=== PATIENT | female | born 1980 | race African-American/Black ===

== ENCOUNTER 2017-07-18 15:50 | Emergency (ER) | payer SELFPAY ==
[2017-07-18] MEDS: IV NORMAL SALINE 1000ML BAG 1,000 ML IV (16:33)
[2017-07-18] MEDS ORDERED: 0.9 % SODIUM CHLORIDE 10 ML DISP.SYRIN. IV (16:45)
[2017-07-18] MEDS: ASPIRIN 325 MG TABLET PO (17:34)
[2017-07-18 17:44] LABS: ADD MAN DIFF? NO
[2017-07-18 17:47] LABS: BASO % 1 % (0-3); EOS % 1 % (0-3); HEMATOCRIT 43.1 % (36.0-47.0); HEMOGLOBIN 14.3 g/dL (12.0-15.5); LYMPH # 1.4 x10^3/uL (1.0-4.8); LYMPH % 23 % (24-48); MEAN CORPUSCULAR HEMOGLOBIN 30 pg (25-35); MEAN CORPUSCULAR HGB CONC 33 g/dL (31-37); MEAN CORPUSCULAR VOLUME 90 fL (79-100); MONO # 0.6 x10^3/uL (0.0-1.1); MONO % 10 % (0-9); NEUT % 65 % (31-73); PLATELET COUNT 255 x10^3/uL (140-400); RED CELL DISTRIBUTION WIDTH 14.4 % (11.5-14.5); WHITE BLOOD COUNT 6.2 x10^3/uL (4.0-11.0)
[2017-07-18 17:56] LABS: BILIRUBIN,URINE NEGATIVE (NEG); CLARITY,URINE CLOUDY; COLOR,URINE YELLOW; GLUCOSE,URINE NEGATIVE (NEG); NITRITE,URINE NEGATIVE (NEG); PROTEIN,URINE NEGATIVE (NEG-TRACE)
[2017-07-18 17:57] LABS: URINE HCG POC HCG NEGATIVE (Negative)
[2017-07-18 17:58] LABS: ANION GAP 10 (6-14); BLOOD UREA NITROGEN 8 mg/dL (7-20); CALCIUM 8.8 mg/dL (8.5-10.1); CARBON DIOXIDE 27 mmol/L (21-32); CHLORIDE 105 mmol/L (98-107); CREATININE 0.9 mg/dL (0.6-1.0); GFR 85.2; GLUCOSE 92 mg/dL (70-99); POTASSIUM 3.5 mmol/L (3.5-5.1); SODIUM 142 mmol/L (136-145)
[2017-07-18 18:04] LABS: ALK PHOS 78 U/L (46-116); ALT (SGPT) 6 U/L (14-59); AST (SGOT) 17 U/L (15-37); DIRECT BILIRUBIN 0.1 mg/dL (0.0-0.2); LIPASE 133 U/L (73-393); MAGNESIUM 1.8 mg/dL (1.8-2.4); TOTAL BILIRUBIN 0.5 mg/dL (0.2-1.0); TOTAL PROTEIN 8.6 g/dL (6.4-8.2)
[2017-07-18 18:05] LABS: AMPHETAMINE/METHAMPHETAMINE NEG (NEG); BACTERIA,URINE FEW /HPF (0-FEW); BARBITURATES NEG (NEG); BENZODIAZEPINES NEG (NEG); CANNABINOIDS POS (NEG); COCAINE POS (NEG); ETHANOL, URINE NEG (NEG); METHADONE NEG (NEG); OPIATES NEG (NEG); PHENCYCLIDINE NEG (NEG); RBC,URINE 0 /HPF (0-2); SQUAMOUS EPITHELIAL CELL,UR OCC /LPF
[2017-07-18 18:05] LABS: TROPONINI < 0.017 ng/mL (0.000-0.055)
[2017-07-18 18:11] LABS: THYROID STIM HORMONE (TSH) 1.953 uIU/mL (0.358-3.74)
[2017-07-18 18:14] LABS: CKMB MASS < 0.5 ng/mL (0.0-3.6); CREATINE KINASE 84 U/L (26-192)
[2017-07-18 18:14] LABS: NT-PRO BNP 21 pg/mL (0-124)
== END 2017-07-18 18:45 | disposition home or self-care (01) ==
LOC: ER 15:50
DX: R06.4 Hyperventilation (principal); R20.2 Paresthesia of skin; F14.10 Cocaine abuse, uncomplicated; F12.10 Cannabis abuse, uncomplicated; F41.9 Anxiety disorder, unspecified; R00.2 Palpitations; R06.02 Shortness of breath; F17.210 Nicotine dependence, cigarettes, uncomplicated; Z88.5 Allergy status to narcotic agent
CPT/HCPCS: 36415; 71046; 80048; 80076; 80307; 81001; 81025; 82553; 83690; 83735; 83880; 84443; 84484; 85025; 93005; 96361; 96374; 99285-25; J2060; J7030